=== PATIENT | female | born 1990 | race Caucasian/White ===

== ENCOUNTER 2017-02-07 16:58 | Emergency (ER) | payer OTHER ==
[~2017-02-07 16:58] MED LIST: Iopamidol 370 76% 100 ML VIAL ONE; Sodium Chloride 0.9% 1,000 ML BAG ONE
[2017-02-07 17:44] LABS: #Basophils 0.1 thou/uL (0.0-0.2); #Eosinphils 0.2 thou/uL (0.0-0.7); #Lymphocytes 3.5 thou/uL (1.20-3.40); #Monocytes 0.6 thou/uL (0.11-0.59); #Neutrophils 4.4 thou/uL (1.40-6.50); %Basophils 0.8 % (0.0-1.0); %Eosinophils 1.9 % (0.0-10.0); %Lymphocytes 40.1 % (21.0-51.0); %Monocytes 6.5 % (0.0-10.0); %Neutrophils 50.6 % (42.0-75.0); Hemoglobin 13.6 g/dL (12.0-16.0); Mean Corpuscular HGB CONC 34.2 g/dL (32.0-36.0); Mean Corpuscular Hemoglobin 31.4 pg (27.0-31.0); Mean Corpuscular Volume 91.7 fl (81.0-99.0); Mean Platelet Volume 9.8 fL (7.4-10.4); Platelet Count 187 thou/uL (130-400); RBC Distribution Width 12.2 % (11.5-14.5); Red Blood Cell (RBC) Count 4.33 mill/uL (4.20-5.40); White Blood Cell (WBC) Count 8.6 thou/uL (4.8-10.8)
[2017-02-07 17:47] LABS: Bacteria/HPF 3+ HPF (None Seen); Bilirubin Negative (Negative); Blood, Urine Trace (Negative); Clarity Cloudy (Clear); Glucose, Urine (Dipstick) Negative (Negative); Leukocyte Moderate (Negative); Nitrite Negative (Negative); Protein, Urine (Dipstick) Negative (Neg-Trace); RBC/HPF 0-3 HPF (0-3); Squamous Epithelial 21-50 HPF (0-3); Urobilinogen 0.2 mg/dL (0.2-1.0); pH, Urine 6.5 (5.0-9.0)
[2017-02-07 17:50] LABS: Pregu Control Bar Appear? YES (CONTROL BAR)
[2017-02-07 17:58] LABS: ALT (SGPT) 120 U/L (0-55); AST (SGOT) 47 U/L (5-34); Albumin 4.3 g/dL (3.5-5.0); Alkaline Phosphatase 66 U/L (40-150); Anion Gap 16 mmol/L (10-20); BUN (Urea Nitrogen) 8 mg/dL (7.0-18.7); Bilirubin, Total 0.3 mg/dL (0.2-1.2); Calc. Creatinine Clearance 0 mL/min (70-130); Calcium 9.5 mg/dL (7.8-10.44); Carbon Dioxide 24 mmol/L (22-29); Chloride 103 mmol/L (98-107); Estimated GFR-MDRD Greater than 90; Globulin 2.5 g/dL (2.4-3.5); Glucose 89 mg/dL (70-105); Lipase 28 U/L (8-78); Potassium 3.7 mmol/L (3.5-5.1); Protein, Total 6.8 g/dL (6.0-8.3); Sodium 139 mmol/L (136-145)
--- NOTE | 2017-02-07 20:24 | CT ---
HISTORY: Right lower quadrant pain. CONTRAST ENHANCED CT IMAGES ABDOMEN AND PELVIS 02/07/17 IV contrast was given. Unfortunately oral contrast was not given. CT images abdomen and pelvis demonstrate the lung bases to be unremarkable. No evidence of free intr aperitoneal air seen. The liver and spleen are unremarkable. The gallbladder has been surgically removed. The pancreas is unremarkable. Adrenal glands are unremarkable. Multiple nonobstructing renal calculi seen. The large st of these being in the mid to lower pole of the right kidney, diameter measuring approximately 7 m m. Other smaller bilateral renal calculi also seen. The ureters are decompressed without evidence of obstruction. A normal noninflamed appendix is visualized. No evidence of bowel obstruction seen. Th e uterus and ovaries appear to be unremarkable. No definite evidence of colonic abnormality seen. IMPRESSION: 1. Unremarkable contrast enhanced CT images of the abdomen and pelvis. 2. Nonobstructing renal calculi. POS: [facility]
== END 2017-02-07 18:53 | disposition home or self-care (01) ==
LOC: MADERS 16:58
DX: N39.0 Urinary tract infection, site not specified (principal); F17.210 Nicotine dependence, cigarettes, uncomplicated; F31.9 Bipolar disorder, unspecified; Z79.899 Other long term (current) drug therapy; Z90.49 Acquired absence of other specified parts of digestive tract; Z87.442 Personal history of urinary calculi
CPT/HCPCS: 74177; 80053; 81003; 81015; 81025; 83690; 85025; J2270; J7050